=== PATIENT | female | born 1995 | race Caucasian/White ===

== ENCOUNTER 2022-11-30 18:27 | Emergency (ER) | payer SELFPAY ==
[2022-11-30 18:36] VITALS: BP 137/96; PULSE 61; RESP 18; TEMP 36.3; O2SAT 98; BMI 27.5
--- NOTE | 2022-11-30 18:46 | ED.GENADULT ---
HPI - General Adult General Date Seen: 11/30/22 Chief complaint: Laceration/Wound Stated complaint: Finger Lac Time Seen by Provider: 11/30/22 18:38 Source: patient Mode of arrival: ambulatory Limitations: no limitations History of Present Illness HPI narrative: Patient is a 27-year-old woman who was using a mandoline and sliced the side tip of her right thumb off. She has had some ongoing bleeding. She believes her tetanus is up-to-date. She has no other injuries or complaints. Related Data Home Medications Medication Instructions Recorded Confirmed No Known Home Medications 11/30/22 11/30/22 Allergies Allergy/AdvReac Type Severity Reaction Status Date / Time No Known Drug Allergies Allergy Verified 11/30/22 18:40 Exam Narrative: Exam Narrative: Vital signs reviewed In general, an alert, well-appearing woman. Extremities: Examination of the right hand shows a small avulsion off of the tip of the thumb. There is a little bit of persistent oozing type bleeding noted. Just the edge of the distal nail is involved. There is no involvement down to the bone. She did bring the flap of skin with her. Skin: Warm and dry, otherwise intact. Const: Vital Signs, click to edit/add: Vital Signs - 24 hr 11/30/22 18:36 Temperature 97.4 F L Pulse Rate [Pulse Oximeter] 61 Respiratory Rate 18 Blood Pressure [Le ft Upper Arm] 137/96 H Pulse Oximetry 98 Oxygen Delivery Me thod Room Air Documenting provider has reviewed patient's vital signs: yes Course Course Hospital Course: Discussed that that thin flap of skin simply is not viable and she understands that. We will go ahead and clean wound, apply some surgi- foam and a tube gauze dressing. I would recommend leaving this on for couple few days unless it is hurting more significantly, in which case she should remove the dressing to check for any signs of infection. Return if signs of infection develop, otherwise this will likely take a couple of weeks to heal. Discussed that there will be a permanent defect in the finger, sensation will likely be somewhat altered. Vital Signs Vital signs: Initial Vital Signs Temperature 97.4 F L 11/30/22 18:36 Temperature Source Temporal Artery Scan 11/30/22 18:36 Pulse Rate 61 11/30/22 18:36 Pulse Rhythm 11/30/22 18:36 Respiratory Rate 18 11/30/22 18:36 Blood Pressure 137/96 H 11/30/22 18:36 Blood Pressure Mean 109 11/30/22 18:36 Blood Pressure Position Sitting 11/30/22 18:36 Pulse Oximetry 98 11/30/22 18:36 Oxygen Delivery Method 11/30/22 18:36 Vital Signs Temperature 97.4 F L 11/30/22 18:36 Pulse Rate 61 11/30/22 18:36 Respiratory Rate 18 11/30/22 18:36 Blood Pressure 137/96 H 11/30/22 18:36 Pulse Oximetry 98 11/30/22 18:36 Oxygen Delivery Method 11/30/22 18:36 Temperature 97.4 F L 11/30/22 18:36 Pulse Rate 61 11/30/22 18:36 Respiratory Rate 18 11/30/22 18:36 Blood Pressure 137/96 H 11/30/22 18:36 Pulse Oximetry 98 11/30/22 18:36 Oxygen Delivery Method 11/30/22 18:36 Discharge Plan Discharge Clinical Impression: Avulsion of skin Patient Disposition: Home, Self-Care Condition: Improved Instructions: Skin Avulsion (ED) Additional Instructions: As long as you are not experiencing significantly worsening pain, leave the dressing we apply on today on for the next 2-3 days. At that point, you can remove it and probably will be okay with just a Band-Aid. Return for signs of infection such as worsening pain, redness, swelling. Prescriptions: No Action No Known Home Medications Stand Alone Forms: [facility] Info Instructions
[2022-11-30 19:19] VITALS: BP 137/96; PULSE 61; RESP 18; TEMP 36.3; O2SAT 98
[2022-11-30 19:20] VITALS: BP 137/96; PULSE 61; RESP 18; TEMP 36.3
== END 2022-11-30 19:20 | disposition home or self-care (01) ==
LOC: ED 18:54
PROVIDERS: Emergency Provider Emergency Medicine; PCP Family Medicine
DX: S61.011A Laceration without foreign body of right thumb without damage to nail, initial encounter (principal)
CPT/HCPCS: 99282; 99283

== ENCOUNTER 2023-12-23 08:50 | Emergency (ER) | payer OTHER, SELFPAY ==
[2023-12-23 08:54] VITALS: BP 123/79; PULSE 82; RESP 16; TEMP 36.6; O2SAT 100; BMI 25.7
--- NOTE | 2023-12-23 09:25 | US_ITS ---
Patient: YEHUDA GUTIERRES Facility:?[facility] Patient ID:?[id number] Site Patient ID:?[id number]. Site :?1995 Study:?US-OB Pelvis OB TV-12/23/2023 10:47:02 AM Ordering Physician:?LIYAH LOVING M.D. Final Report: Indication: Increased vaginal bleeding. . Technique: Sonography of the gravid uterus was performed. Examination was performed transvaginally. Grayscale imaging was provided as well as M-mode Doppler to quantify heart rate. Comparison: None Findings: There is a single living intrauterine . Based on a crown-rump length measurement of 1.1 centimeters, the gestational age is 7 weeks and 1 day. Estimated dated delivery is 08/09/2024. heart rate is 127 beats per minute. This is considered normal for this gestational age. A well-formed yolk sac and gestational sac is identified. The yolk sac measures 4.7 millimeters and the gestational sac averages 1.8 centimeters. The ovaries are normal in size. There is no ovarian or adnexal mass. The right ovary measures 2.8 x 2.0 x 2.5 centimeters and the left ovary measures 3.4 x 2.0 x 2.5 centimeters. Impression: 1. Single living intrauterine at 7 weeks and 1 day. heart rate is 127 beats per minute which is normal for this gestational age. 2. No subchorionic hemorrhage or other visible cause for bleeding 3. Normal ovaries and adnexa. Dictated by Kimani Salmeron MD @ 12/23/2023 10:57:53 AM Signed by:?Kimani Salmeron MD @12/23/2023 10:57:53 AM (Electronic Signature)
--- NOTE | 2023-12-23 09:26 | ED.PREGNANCY ---
HPI - General Date Seen: 12/23/23 Chief complaint: Vaginal Bleeding Stated complaint: bleeding/7 weeks preg. Time Seen by Provider: 12/23/23 08:51 Source: patient Mode of arrival: ambulatory Limitations: no limitations History of Present Illness HPI Narrative: Patient is a 28-year-old female presenting to the emergency department for vaginal bleeding. She is 7 weeks per ultrasound last week. She is a A2. She has been spotting for the past week and was spotting when the previous ultrasound was done. Noticed last night she had increased in bleeding. Her Ob was aware she has been spotting. Patient called nurse triage line today and was told to come to the emergency department to be evaluated. States it is a relatively small amount of blood and is going through less than a pad an hour. Denies abdominal pain, fevers, chills, chest pain, shortness of breath, weakness, numbness, headache, vision changes. 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 No other concerns noted Related Data Home Medications Medication Instructions Recorded Confirmed No Known Home Medications 11/30/22 11/30/22 Allergies Allergy/AdvReac Type Severity Reaction Status Date / Time No Known Drug Allergies Allergy Verified 11/30/22 18:40 Review of Systems Status of ROS: Reports: 10 or more systems reviewed and unremarkable except as noted in History and below [facility] Medical History No significant past medical history Surgical History No significant past surgical history Social History Smoking Status: Never smoker Do you use any of these nicotine containing products: None Second hand tobacco smoke exposure: No How often do you have a drink containing alcohol: never How often do you have six or more drinks on one occasion: Never AUDIT-C Alcohol total score: 0 Non-prescribed substance use: denies use Exam Narrative: Exam Narrative: Const: Well-nourished, Well-developed, in no distress Eyes: PERRL, no conjunctival injection, and symmetrical lids HENT: Atraumatic external nose and ears. Moist mucous membranes. Neck: Symmetric, trachea midline, No thyromegaly. CVS: RRR, No murmurs or gallops. Peripheral pulses 2+ and equal in all extremities RESP: Unlabored respiratory effort. Clear to auscultation bilaterally. GI: Nontender/Nondistended, No rebound or guarding. MSK:Extremities w/o deformity, Normal Active ROM Skin: Warm, Dry. No rashes or lesions. Neuro: Normal Muscle tone, No focal neurological deficits. Psych: Awake, Alert, & Oriented x3. Appropriate mood and affect. Const: Vital Signs, click to edit/add: Vital Signs - 24 hr 12/23/23 08:54 Temperature 97.9 F Pulse Rate [Pulse Oximeter] 82 Respiratory Rate 16 Blood Pressure [Ri ght Upper Arm] 123/79 Pulse Oximetry 100 Oxygen Delivery Me thod Room Air Course Vital Signs Vital signs: Initial Vital Signs Temperature 97.9 F 12/23/23 08:54 Temperature Source Temporal Artery Scan 12/23/23 08:54 Pulse Rate 82 12/23/23 08:54 Pulse Rhythm Regular 12/23/23 08:54 Respiratory Rate 16 12/23/23 08:54 Blood Pressure 123/79 12/23/23 08:54 Blood Pressure Mean 93 12/23/23 08:54 Blood Pressure Position Sitting 12/23/23 08:54 Pulse Oximetry 100 12/23/23 08:54 Oxygen Delivery Method Room Air 12/23/23 08:54 Vital Signs Temperature 97.9 F 12/23/23 08:54 Pulse Rate 82 12/23/23 08:54 Respiratory Rate 16 12/23/23 08:54 Blood Pressure 123/79 12/23/23 08:54 Pulse Oximetry 100 12/23/23 08:54 Oxygen Delivery Method Room Air 12/23/23 08:54 Temperature 97.9 F 12/23/23 08:54 Pulse Rate 82 12/23/23 08:54 Respiratory Rate 16 12/23/23 08:54 Blood Pressure 123/79 12/23/23 08:54 Pulse Oximetry 100 12/23/23 08:54 Oxygen Delivery Method Room Air 12/23/23 08:54 MDM - OB/Uterine Contractions MDM Narrative Medical decision making narrative: Patient is a 28-year-old female presenting for vaginal bleeding and is . She is about 7 weeks along. Had a normal ultrasound on the last week. Is unlikely to be ectopic since previous ultrasound shows is intrauterine. Patient looks well at this time. I spoke to the patient about a transvaginal ultrasound and she would like it to be done and was ordered. Will also order a CBC, BMP, quantitative beta hCG. Cbc and BMP showed no concerning findings. Quantitative hCG is at 7730. Ultrasound returned showing a heart rate 127 beats per minute does normal for gestational age. No signs of subchorionic hemorrhage or other visible causes for bleeding. Normal ovaries and adnexa. Patient is otherwise doing well we discharged home. She is agreeable to this plan. Lab Data Labs: Lab Results 12/23/23 Range/Units 09:34 WBC 7.50 (4.50-11.00) K/uL RBC 4.75 (4.00-5.20) m/uL Hgb 14.1 (12.0-16.0) gm/dL Hct 43.1 (33.0-51.0) % MCV 91 (80-100) fL MCH 30 (26-34) pg MCHC 33 (32-36) gm/dL RDW Coeff of Lotus 12.9 (11.5-15.5) % Plt Count 309 (140-440) K/uL Neut % (Auto) 70.9 (42.0-72.0) % Lymph % (Auto) 18.9 L (20-44) % [place] % (Auto) 8.1 (0.0-11.0) % Eos % (Auto) 1.6 (0.0-7.0) % Baso % (Auto) 0.4 (0.0-3.0) % Neut # (Auto) 5.31 (1.7-7.0) K/uL Lymph # (Auto) 1.40 (0.90-2.90) K/uL [place] # (Auto) 0.60 (0.00-0.90) K/UL Eos # (Auto) 0.12 (0.00-0.50) K/uL Baso # (Auto) 0.03 (0.00-0.30) K/uL Abs Immat Gran (auto) 0.01 (0.00-0.30) K/uL Imm/Tot Granulo (auto) 0.1 % Sodium 137 (135-149) mmol/L Potassium 3.9 (3.6-5.1) mmol/L Chloride 103 (96-114) mmol/L Carbon Dioxide 26 (20-32) mmol/L Anion Gap 8 (7-15) mEq/L BUN 10 (5-24) mg/dL Creatinine 0.6 (0.5-1.5) mg/dL Estimated Creat Clear 118.39 Estimated GFR 124 ml/min Glucose 131 H (60-115) mg/dL Calcium 10.3 (8.4-10.6) mg/dL HCG, Quant 7730.70 mIU/mL Imaging Data Transvaginal ultrasound: Attestation: I have reviewed the pertinent imaging results. Radiologist's impression: 1. Single living intrauterine at 7 weeks and 1 day. heart rate is 127 beats per minute which is normal for this gestational age. 2. No subchorionic hemorrhage or other visible cause for bleeding 3. Normal ovaries and adnexa. Dictated by Kimani Salmeron MD @ 12/23/2023 10:57:53 AM Discharge Plan Discharge Clinical Impression: Vaginal bleeding Patient Disposition: Home, Self-Care Condition: Stable Instructions: Non-Threatening First Trimester Vaginal Bleed (ED) Additional Instructions: If he started bleeding through more than 1 pad per hour return to the emergency department for re-evaluation. If it is less than that I recommend calling your OB [facility] to get their recommendations. Prescriptions: No Action No Known Home Medications Follow Up/Referrals: Wendi Kern DO [Primary Care Provider] - Stand Alone Forms: [employer] Info Instructions
[2023-12-23 09:42] LABS: Basophils Absolute Auto 0.03 K/uL (0.00-0.30); Basophils Percent Auto 0.4 % (0.0-3.0); Eosinophils Absolute Auto 0.12 K/uL (0.00-0.50); Eosinophils Percent Auto 1.6 % (0.0-7.0); Hematocrit 43.1 % (33.0-51.0); Hemoglobin* 14.1 gm/dL (12.0-16.0); Immature Granulocytes Abs Auto 0.01 K/uL (0.00-0.30); Immature Granulocytes Pct Auto 0.1 %; Lymphocytes Percent Auto 18.9 % (20-44); Mean Corpuscular HGB Conc 33 gm/dL (32-36); Mean Corpuscular Hemoglobin 30 pg (26-34); Mean Corpuscular Volume 91 fL (80-100); Monocytes Percent Auto 8.1 % (0.0-11.0); Neutrophils Absolute Auto 5.31 K/uL (1.7-7.0); Neutrophils Percent Auto 70.9 % (42.0-72.0); Platelet Count* 309 K/uL (140-440); RDW Coefficient of Variation % 12.9 % (11.5-15.5); Red Blood Count 4.75 m/uL (4.00-5.20)
[2023-12-23 09:45] LABS: Slide Review Reflex No
[2023-12-23 10:03] LABS: Chloride* 103 mmol/L (96-114); Sodium* 137 mmol/L (135-149)
[2023-12-23 10:04] LABS: Potassium* 3.9 mmol/L (3.6-5.1)
[2023-12-23 10:06] LABS: Anion Gap 8 mEq/L (7-15); Carbon Dioxide* 26 mmol/L (20-32); Creatinine* 0.6 mg/dL (0.5-1.5); Est. Creatinine Clearance* 118.39; Estimated Glomerular Filt Rate 124 ml/min
[2023-12-23 10:07] LABS: Blood Urea Nitrogen* 10 mg/dL (5-24); Calcium* 10.3 mg/dL (8.4-10.6); Glucose* 131 mg/dL (60-115)
== END 2023-12-23 11:08 | disposition home or self-care (01) ==
PROVIDERS: Emergency Provider Student in an Organized Health Care Education/Training Program; PCP Family Medicine
DX: O20.9 Hemorrhage in early pregnancy, unspecified (principal); Z3A.01 Less than 8 weeks gestation of pregnancy
CPT/HCPCS: 36415; 76817; 80048; 84702; 85025; 86850; 86900; 86901; 99282; 99283

== ENCOUNTER 2023-12-25 16:18 | Emergency (ER) | payer OTHER, SELFPAY ==
[2023-12-25 16:25] VITALS: BP 151/84; PULSE 91; RESP 18; TEMP 36.6; O2SAT 99; BMI 29.2
--- NOTE | 2023-12-25 17:03 | ED.PREGNANCY ---
HPI - General Time Seen by Provider: 17:03 Date Seen: 12/25/23 Chief complaint: Vaginal Bleeding Stated complaint: bleeding/cramps, 7 wks Time Seen by Provider: 12/25/23 17:03 Source: patient and RN notes reviewed Mode of arrival: ambulatory Limitations: no limitations History of Present Illness HPI Narrative: Sami is a very pleasant 28-year-old at 7 weeks 3 days with an EDC of 08/09 based on an ultrasound last week who comes to the emergency room for evaluation regarding increased bleeding. Patient was initially seen on December 22 with spotting and bleeding and at that time still had and embryonic heartbeat. Unfortunately the bleeding has increased and today is much more. Patient notes that she has some cramping but no significant pain. She denies fever chills lightheadedness or shortness of breath. She has had a history of 2 previous miscarriages. She has 2 living children. Her care was being done with a uniform designer. Otherwise she sees Dr. Mancia at the [facility]. Denies dysuria. No diarrhea. Related Data Home Medications Medication Instructions Recorded Confirmed No Known Home Medications 11/30/22 11/30/22 Allergies Allergy/AdvReac Type Severity Reaction Status Date / Time No Known Drug Allergies Allergy Verified 11/30/22 18:40 Review of Systems Status of ROS: Reports: 6 or more systems reviewed and unremarkable except as noted in History and below [facility] Medical History No significant past medical history Surgical History No significant past surgical history Social History Smoking Status: Never smoker Do you use any of these nicotine containing products: None Second hand tobacco smoke exposure: No How often do you have a drink containing alcohol: never How often do you have six or more drinks on one occasion: Never AUDIT-C Alcohol total score: 0 Non-prescribed substance use: denies use Exam Narrative: Exam Narrative: Patient is alert and oriented. Good color. Heart with regular rate and rhythm lungs are clear. Head is atraumatic normocephalic face is symmetrical speaking normally mentating normally. Lungs are clear bilaterally. Abdomen is soft nontender. Moving all extremities. Const: Vital Signs, click to edit/add: Vital Signs - 24 hr 12/25/23 16:25 Temperature 98 F Pulse Rate [Pulse Oximeter] 91 Respiratory Rate 18 Blood Pressure [Ri ght Upper Arm] 151/84 H Pulse Oximetry 99 Oxygen Delivery Me thod Room Air Documenting provider has reviewed patient's vital signs: yes Course Course ED Course: This most likely looks like a threatened . Will recheck hCG as well as CBC and basic panel. Ordered pelvic ultrasound as well. Vital Signs Vital signs: Initial Vital Signs Temperature 98 F 12/25/23 16:25 Temperature Source Temporal Artery Scan 12/25/23 16:25 Pulse Rate 91 12/25/23 16:25 Respiratory Rate 18 12/25/23 16:25 Blood Pressure 151/84 H 12/25/23 16:25 Blood Pressure Mean 106 H 12/25/23 16:25 Pulse Oximetry 99 12/25/23 16:25 Oxygen Delivery Method Room Air 12/25/23 16:25 Vital Signs Temperature 98 F 12/25/23 16:25 Pulse Rate 91 12/25/23 16:25 Respiratory Rate 18 12/25/23 16:25 Blood Pressure 151/84 H 12/25/23 16:25 Pulse Oximetry 99 12/25/23 16:25 Oxygen Delivery Method Room Air 12/25/23 16:25 Temperature 98 F 12/25/23 16:25 Pulse Rate 91 12/25/23 16:25 Respiratory Rate 18 12/25/23 16:25 Blood Pressure 151/84 H 12/25/23 16:25 Pulse Oximetry 99 12/25/23 16:25 Oxygen Delivery Method Room Air 12/25/23 16:25 MDM - OB/Uterine Contractions MDM Narrative Medical decision making narrative: 1. Incomplete -products of conception appear to be in the endocervical canal. There is no cardiac activity and this does appear to could be compatible with demise. Endometrial thickness is 2.4 cm. Patient is aware of this finding. She has reassuring hemoglobin of 14.3. Her hCG has dropped consistent with incomplete . Will discharge her home at this time. She is to watch for fever, worsening pain, vomiting, lightheadedness and return if these occur. She will follow up with her primary MD Dr. Mancia she will need to have her hCG levels monitored down to 0. Of course worsening symptoms she needs to return to the emergency room. She voices understanding. 2. Disposition-return as needed. Home at this time. Medical Records Attestation: I reviewed the patient's medical records. Lab Data Attestation: I reviewed the patient's lab results. Labs: Lab Results 12/25/23 Range/Units 17:15 WBC 7.00 (4.50-11.00) K/uL RBC 4.81 (4.00-5.20) m/uL Hgb 14.3 (12.0-16.0) gm/dL Hct 44.2 (33.0-51.0) % MCV 92 (80-100) fL MCH 30 (26-34) pg MCHC 32 (32-36) gm/dL RDW Coeff of Lotus 13.0 (11.5-15.5) % Plt Count 275 (140-440) K/uL Neut % (Auto) 60.4 (42.0-72.0) % Lymph % (Auto) 25.1 (20-44) % [place] % (Auto) 13.0 H (0.0-11.0) % Eos % (Auto) 1.0 (0.0-7.0) % Baso % (Auto) 0.4 (0.0-3.0) % Neut # (Auto) 4.22 (1.7-7.0) K/uL Lymph # (Auto) 1.76 (0.90-2.90) K/uL [place] # (Auto) 0.90 (0.00-0.90) K/UL Eos # (Auto) 0.07 (0.00-0.50) K/uL Baso # (Auto) 0.03 (0.00-0.30) K/uL Abs Immat Gran (auto) 0.01 (0.00-0.30) K/uL Imm/Tot Granulo (auto) 0.1 % Sodium 138 (135-149) mmol/L Potassium 3.6 (3.6-5.1) mmol/L Chloride 104 (96-114) mmol/L Carbon Dioxide 25 (20-32) mmol/L Anion Gap 9 (7-15) mEq/L BUN 12 (5-24) mg/dL Creatinine 0.6 (0.5-1.5) mg/dL Estimated Creat Clear 118.39 Estimated GFR 124 ml/min Glucose 102 (60-115) mg/dL Calcium 9.6 (8.4-10.6) mg/dL HCG, Quant 4341.10 mIU/mL Imaging Data Pelvic ultrasound: Attestation: I have reviewed the pertinent imaging results. Radiologist's impression: demise with in progress. Gestational sac and embryo are within the endocervical canal. There is no evidence of cardiac activity findings are compatible with demise an in progress. Both or worries are normal. Retroverted uterus. Endometrial stripe thickness at 2.4 cm. Discharge Plan Discharge Clinical Impression: Incomplete Patient Disposition: Home, Self-Care Condition: Improved Additional Instructions: Continue to monitor. Your bleeding likely continue. If you note that your feeling lightheaded, experience fever chills or increasing abdominal pain please return to the emergency room for further evaluation. Hemoglobin is 14.3 at this time. Your hCG has dropped from 7730 to 4341. Follow-up with your primary provider for recheck. We want to ensure that your hemoglobin does not drop too low and your hCG does drop to 0. Prescriptions: No Action No Known Home Medications Follow Up/Referrals: Wendi Kern DO [Primary Care Provider] - Stand Alone Forms: [employer] Info Instructions
--- NOTE | 2023-12-25 17:07 | US_ITS ---
Patient: YEHUDA GUTIERRES Facility:?[facility] Patient ID:?[id number] Site Patient ID:?[id number]. Site :?04/13/1998 Study:?US-OB Pelvis TV OB<14wks-12/25/2023 6:49:26 PM Ordering Physician:? Final Report: INDICATION: Increased vaginal bleeding in early . Eleven week 3 day gestational age. TECHNIQUE: Transvaginal 1st trimester OB ultrasound. Grayscale and Doppler images. Comparison: 12/23/2023 FINDINGS: Gestational sac and embryo are now within the endocervical canal. No cardiac activity. Findings are compatible with demise and in progress. Both ovaries appear normal. Retroverted uterus. Endometrial stripe thickness 2.4 cm. IMPRESSION: demise with in progress. Dictated by Anatoliy Wylie MD @ 12/25/2023 6:56:02 PM Signed by:?Anatoliy Wylie MD @12/25/2023 6:56:02 PM (Electronic Signature)
[2023-12-25 17:23] LABS: Basophils Absolute Auto 0.03 K/uL (0.00-0.30); Basophils Percent Auto 0.4 % (0.0-3.0); Eosinophils Absolute Auto 0.07 K/uL (0.00-0.50); Hematocrit 44.2 % (33.0-51.0); Hemoglobin* 14.3 gm/dL (12.0-16.0); Immature Granulocytes Abs Auto 0.01 K/uL (0.00-0.30); Immature Granulocytes Pct Auto 0.1 %; Lymphocytes Absolute Auto 1.76 K/uL (0.90-2.90); Lymphocytes Percent Auto 25.1 % (20-44); Mean Corpuscular HGB Conc 32 gm/dL (32-36); Mean Corpuscular Hemoglobin 30 pg (26-34); Mean Corpuscular Volume 92 fL (80-100); Neutrophils Absolute Auto 4.22 K/uL (1.7-7.0); Neutrophils Percent Auto 60.4 % (42.0-72.0); Platelet Count* 275 K/uL (140-440); Red Blood Count 4.81 m/uL (4.00-5.20)
[2023-12-25 17:24] LABS: Slide Review Reflex No
[2023-12-25 17:35] LABS: Chloride* 104 mmol/L (96-114); Potassium* 3.6 mmol/L (3.6-5.1); Sodium* 138 mmol/L (135-149)
[2023-12-25 17:37] LABS: Creatinine* 0.6 mg/dL (0.5-1.5); Est. Creatinine Clearance* 118.39; Estimated Glomerular Filt Rate 124 ml/min
[2023-12-25 17:38] LABS: Anion Gap 9 mEq/L (7-15); Blood Urea Nitrogen* 12 mg/dL (5-24); Calcium* 9.6 mg/dL (8.4-10.6); Carbon Dioxide* 25 mmol/L (20-32); Glucose* 102 mg/dL (60-115)
== END 2023-12-25 19:29 | disposition home or self-care (01) ==
PROVIDERS: Emergency Provider Family Medicine; PCP Family Medicine
DX: O03.4 Incomplete spontaneous abortion without complication (principal)
CPT/HCPCS: 36415; 76817; 80048; 84702; 85025; 99284

== ENCOUNTER 2024-02-06 11:31 | Outpatient (CLI) | payer OTHER, SELFPAY | END 2024-02-06 11:32 | disposition home or self-care (01) | PROVIDERS: PCP Family Medicine; Visit Provider Obstetrics & Gynecology | DX: N96 Recurrent pregnancy loss (principal) | CPT/HCPCS: 82232; 83001; 85610; 85613; 85730; 86147; 88262 ==

== ENCOUNTER 2024-03-08 09:02 | Day surgery (SDC) | payer OTHER, SELFPAY ==
--- OUTSIDE RECORDS SUMMARY | 2024-03-08 09:06 | XMS_ITS | Clinical Summary ---
Author Organization [facility] [employer] [facility] Address [place], [place] [address] Care Team Providers Care Continuous Improvement Engineer Name Role Phone Wendi Kern DO Primary Care Provider [phone] Allergies No known active allergies Medications Medication Sig Dispensed Refills Start Date End Date Status vitamin-folic acid 1 mg ( RX) tablet/capsule Take 1 tablet by mouth once daily. 0 09/27/2018 Active cholecalciferol (VITAMIN D) 1,000 unit capsule Take 1 capsule by mouth once daily. 0 09/27/2018 Active Active Problems Problem Noted Date Diagnosed Date Prediabetes 02/29/2024 Pap smear for cervical cancer screening 01/18/20 23 Overview: 01/2023 NIL/HPV negative Plan: Pap/HPV due in 5 years care in second trimester 09/27/2018 Overview: Marcial is Gender is a surprise! Plans to breastfeed. Circ desired if boy GBS negative Component Latest Ref Rng & Units 01/04/2019 Culture No Group B Streptococcus isolated. Estimated Date of Delivery: 02/01/19 Patient's last menstrual period was 04/27/2018 (approximate). Last Tdap- 11/08/2018 Last Flu vaccine- 09/22/2018 Glucose (GTT) result- Component Latest Ref Rng & Units 11/08/2018 HEMOGLOBIN 12.0 - 16.0 g/dL 10.7 (L) MCV 80 - 100 fL 93 GLUCOSE,GESTATIONAL 65 - 139 mg/dL 93 20 week US: Impression: 1. Breech presentation. 2. No anatomical abnormalities identified. 3. Ultrasound age on today`s exam 20 weeks 3 days with CATHY of 02/06/2019 within CATHY by LMP of 02/01/2019. No Known Allergies Obstetric History T0 L0 SAB0 TAB0 Ectopic0 Multiple0 Live Births0 # Outcome Date GA Lbr Jaison/2nd Weight Sex Delivery Anes PTL Lv 1 Current Create lab flowsheet for OB labs- Component Latest Ref Rng & Units 09/22/2018 09/22/2018 09/22/2018 9:28 AM 9:28 AM 9:28 AM ANTIBODY SCREEN Negative Negative SPECIMEN EXPIRATION DATE/TIME 09/25/18 23:59 HEMOGLOBIN 12.0 - 16.0 g/dL 11.8 (L) MCV 80 - 100 fL 94 RUBELLA IGG ANTIBODY Positive 5.17 HEMOGLOBIN A1C SCREENING <6.4 % 5.4 ABORH A Rh Positive HBSAG Nonreactive Nonreactive HEPATITIS C ANTIBODY Non-Reactive Non-Reactive HIV-1/HIV-2 ANTIBODY Non-Reactive Non-Reactive TREPONEMA PALLIDUM Negative Negative Past Medical History: Diagnosis Date ? ? Acne ? ? Environmental allergies skin test + trees, grasses, dust, cat, dog Past Surgical History: Procedure Laterality Date ? ? NO PREVIOUS SURGERY No data on file. Problems (from 09/22/18 to present) No problems associated with this episode. Brie Vance, RNC.....09/27/2018 3:31 PM Menorrhagia with irregular cycle 05/16/2013 Acne 08/06/2011 Environmental allergies Encounters Date Type Department Care Team Description 02/29/2024 8:20 AM CDT Preop Visit [address] [place] [address] Wendi Kern DO Preoperative Exam (03/08/[address] [facility] [address] Reyes, D & C) 02/29/2024 Travel 02/06/2024 Lab Requisition [facility] [phone] Mary Reyes MD 01/31/2024 10:30 AM CDT Ancillary Procedure [facility] [address] [facility] [place] [address] 01/30/2024 Travel 01/12/2024 9:35 AM CDT Office Visit [address] [place] [address] Wendi Kern DO Follow Up (miscarriage ) 01/12/2024 Travel 01/09/2024 Travel 12/25/2023 Orders Only [facility] Scanner 1 scan: (1-Ord) [facility], SUMMARY DISCHARGE LAB REPORT, 12/25/2023 12/25/2023 Orders Only [facility] Scanner 1 scan: (1-Ord) [facility], OB TRANSVAGINAL, 12/25/2023 12/25/2023 Telephone [facility] [address] [facility] [place] [address] Wendi Kern, Questions 12/23/2023 Orders Only [facility] Scanner 1 scan: (1-Ord) [facility], OB PELVIS OB TV, 12/23/2023 12/23/2023 Orders Only [facility] HIM SERVICES Scanner 1 scan: (1-Ord) [facility], SUMMARY DISCHARGE LAB REPORT, 12/23/2023 12/23/2023 Nurse Triage [facility] [address] [facility] [place] [address] Wendi Kern, Vaginal Bleeding from Last 3 Months Immunizations Name Administration Dates Next Due DTaP 01/21/1998, 5,1993,08/12,1993 DTaP-HIB (TriHIBIT) 09/29/1994, 4,1993,06/03 Hepatitis A (Peds) 03/19/2013,08/06/2011 Hepatitis B (Peds) 03/04/1995, 4,1993,10/06 Hib Conjugate, Unspecified 09/29/1994,,1993,06/03 Human Papilloma Virus Vaccine 12/09/2010, 007,05/15/2007 Human Papilloma Virus Vaccin e, Unspecified 12/09/2010,07/17/2007,05/15/2007 Influenza Virus, Unspecified 07/20/2013 Influenza, IIV3 (Age 6-35 mos) 08/06/2011 Influenza, IIV3 (Age >=3 years) 08/06/2011 Influenza, IIV4 09/22/2018 MMR 05/13/2005,07/28/1994 Meningococcal Vaccine (Menactra) 08/06/2011,04/20 Oral Polio Vaccine 01/21/1998, 5,1993,06/03 Td (Age >=7 Years) 05/13/2005 Tdap 11/08/2018,05/15/2007 Tuberculin (PPD) 03/19/2013 Varicella Vaccine 05/15/2007,06/29/1999 Family History Medical History Relation Name Comments Heart Disease Father stents, angina Cancer-breast Maternal Grandmother Camila Other Maternal Grandmother Camila detache d retina Diabetes Paternal Grandfather Paternal grandfather early CAD in 40's Diabetes Paternal Grandmother Zuly Stroke Paternal Grandmother Zuly Other Sister acromegaly Relation Name Status Comments Father Alive Maternal Grandfather Alive Maternal Grandmother Camila Alive Mother Alive Paternal Grandfather Paternal grandfather Paternal Grandmother Zuly Alive Sister Social History Tobacco Use Types Packs/Day Years Used Date Smoking Tobacco: Never Smokeless Tobacco: Never Tobacco Cessation:Counseling Given: Yes Alcohol Use Standard Drinks/Week Comments No 0 (1 standard drink = 0.6 oz pur e alcohol) PHQ-2 Answer Date Recorded PHQ-2 TOTAL SCORE 1 01/17/2023 Social Connections Answer Date Recorded Frequency of Communication with Friends and Fami ly Not on file 01/18/2024 Financial Resource Strain Answer Date R ecorded Difficulty of Paying Living Expenses 3 01/03/2023 Difficulty of Paying Living Expenses Not on file 01/03/2023 Food Insecurity Answer Date Recorded Worried About Running Out of Food in the Last Ye ar 1 01/03/2023 Transportation Needs Answer Date Record ed Lack of Transportation (Medical) 1 01/03/2023 Housing Stability Answer Date Recorded Unable to Pay for Housing in the Last Year 1 01/03/2023 Sex and Gender Information Value Date Recorded Sex Assigned at Not on file Gender Identity Not on file Sexual Orientation Not on file Obstetrics History Para Term AB IAB SAB Ectopic Multiple Livin g Live Births 3 2 2 0 1 0 1 0 0 2 2 Date Outcome GA Total Labor Labor/2nd/3rd Weight Sex Type Anes PTL Janki A1 A5 Name Clin SAB SPONTAN EOUS Demise 02/04 Term 40w 3d Vag Living 02/07 Term Vag Living Last Filed Vital Signs Vital Sign Reading Time Taken Comments Blood Pressure 122/76 02/29/2024 8:55 AM CDT Pulse 66 02/29/2024 8:30 AM CDT Temperature 37.2 ??C (98.9 ??F) 02/29/2024 8:30 AM CD T Respiratory Rate - - Oxygen Saturation 98% 02/29/2024 8:30 AM CDT Inhaled Oxygen Concentration - - Weight 91.6 kg (202 lb) 02/29/2024 8:30 AM CDT Height 164.5 cm (5' 4.75) 02/29/2024 8:30 AM CD T Body Mass Index 33.87 02/29/2024 8:30 AM CDT Plan of Treatment Health Maintenance Due Date Last Done Comments COVID-19 vaccine series ( season) 2023 Depression screening for age 12+ 01/18/2024 01/17/2023, 09/22/2018 Influenza for age 9-49 05/20/2024 9, 07/20/2013, 08/06/2011 BMI (ht and wt on same day) for age 18+ 02/28/2025 02/29/2024, 01/17/2023, 08/21/2021, Additional history exists Pap test for age 21-65 01/18/2028 , 01/17/2023, 09/27/2018, Additional history exists Tetanus booster 11/08/2028 11/08/2018, 04/20, 05/13/2005 HIV for age 15-65 Completed 09/22/2018 Hepatitis C screening for age 18-79 Completed 09/22/2018 Tdap Completed 11/08/2018, 05/15/2007 Pneumococcal series for age 6-64 Aged Out No longer eligible based on patient's age to complete this topic Procedures Procedure Name Priority Date/Time Associated Diagnosis Comments CHROM TECH 2 Routine 02/06/2024 12:00 PM CDT CHROM TECH 1 Routine 02/06/2024 12:00 PM CDT WC Routine 02/06/2024 12:00 PM CDT WB Routine 02/06/2024 12:00 PM CDT CB WETLAB Routine 02/06/2024 12:00 PM CDT CB CHROM Routine 02/06/2024 12:00 PM CDT CYTOGENETIC CONGENITAL BLOOD STUDIES Routine 02/06/2024 12:00 PM CDT US PELVIS COMPLETE TA AND TV Routine 01/31/2024 10:58 AM CDT History of recurrent miscarriages TSH WITH REFLEX Routine 01/12/2024 10:44 AM CDT History of recurrent miscarriages HCG BETA QUANT, Routine 01/12/2024 10:44 AM CDT Miscarriage SCAN-LABORATORY REPORT 12/25/2023 12:00 AM CDT SCAN-ULTRASOUND REPORT 12/25/2023 12:00 AM CDT SCAN-LABORATORY REPORT 12/23/2023 12:00 AM CDT SCAN-ULTRASOUND REPORT 12/23/2023 12:00 AM CDT HPV THIN PREP Routine 01/17/2023 10:53 AM CDT Cervical cancer screening ANTI HIV 1/2 Routine 09/22/2018 9:28 AM PROFESSOR/NURSE ANESTHETIST Encounter for supervision of normal first in second trimester ANTI HCV Routine 09/22/2018 9:28 AM PROFESSOR/NURSE ANESTHETIST Encounter for supervision of normal first in second trimester from Last 3 Months or Most Recently Relevant to Health Maintenance Results * CB WETLAB (02/06/2024 12:00 PM CDT) Blood (Peripheral Blood) Client Collect / Unknown 02/06/2024 12:00 PM CDT 02/06/2024 9:08 PM CDT Mary Rosalina Reyes MD LABORATORY [facility] [address] [place] [id number], [place] * WB (02/06/2024 12:00 PM CDT) Blood (Peripheral Blood) Client Collect / Unknown 02/06/2024 12:00 PM CDT 02/06/2024 9:08 PM CDT Mary Reyes MD LABORATORY Performing Organization Address City/[facility]/ZIP Co de Phone Number [email or web address] [address] [place] [phone], [place] * CHROM TECH 2 (02/06/2024 12:00 PM CDT) Blood (Peripheral Blood) Client Collect / Unknown 02/06/2024 12:00 PM CDT 02/06/2024 9:08 PM CDT Mary Reyes MD LABORATORY Performing Organization Address [facility] Co de Phone Number [email or web address] [address] [place] [phone], [place] * CHROM TECH 1 (02/06/2024 12:00 PM CDT) Blood (Peripheral Blood) Client Collect / Unknown 02/06/2024 12:00 PM CDT 02/06/2024 9:08 PM CDT Mary Reyes MD LABORATORY Performing Organization Address City/[facility] Co de Phone Number [email or web address] [address] [place] [id number], [place] * CB CHROM (02/06/2024 12:00 PM CDT) Blood (Peripheral Blood) Client Collect / Unknown 02/06/2024 12:00 PM CDT 02/06/2024 9:08 PM CDT Mary Reyes MD LABORATORY Performing Organization Address City/[facility]/ZIP Co de Phone Number [facility] [address] [place] [id number], [place] * WC (02/06/2024 12:00 PM CDT) Blood (Peripheral Blood) Client Collect / Unknown 02/06/2024 12:00 PM CDT 02/06/2024 9:08 PM CDT Mary Rosalina Reyes MD LABORATORY [facility] [address] [place] [address], * CYTOGENETIC CONGENITAL BLOOD STUDIES (02/06/2024 12:00 PM CDT) RFR Recurrent loss 02/21/2024 5:52 PM CDT [facility] TEST & RESULT SUMMARY Chromosome Analysis: Normal female karyotype. 02/21/2024 5:52 PM CDT [facility] _ 02/21/2024 5:52 PM CDT [facility] ISCN 46,XX 02/21/2024 5:52 PM CDT [facility] INTERPRETATION Chromosome analysis revealed a normal female karyotype with no numeric or structural chromosome abnormalities detected. 02/21/2024 5:52 PM CDT [facility] LAB TEST DETAILS Fully Analyzed Metaphases: ??6 Partially Analyzed Metaphases: ??14 Full Karyotypes: ??2 Band Length Range: ??575-600 02/21/2024 5:52 PM CDT [facility] SOURCE Peripheral Blood (10ml NaHep tube) - received 8ml 02/21/2024 5:52 PM CDT [facility] METHODS Cultures used in chromosome analysis may include synchronized and/or unsynchronized cultures. ?? Chromosome analysis is performed selecting the highest quality termite control service representative G-banded metaphases available. A minimum of six metaphases were fully analyzed. 02/21/2024 5:52 PM CDT [facility] DISCLAIMER This test was developed and its performance characteristics determined by the [facility]. It has not been cleared or approved by the U.S. Food and Drug Administration. The FDA does not require these tests to go through premarket FDA review. These tests are used for clinical purposes. They should not be regarded as investigational or for research. This laboratory is certified under the Clinical Laboratory Improvement Amendments (CLIA) as qualified to perform high complexity clinical laboratory testing. 02/21/2024 5:52 PM CDT [facility] Blood (Peripheral Blood) Client Collect / Unknown 02/06/2024 12:00 PM CDT 02/06/2024 9:08 PM CDT Mary Rosalina Reyes MD LABORATORY [facility] [address] [place] [id number], [place] * US PELVIS COMPLETE TA AND TV (01/31/2024 10:58 AM CDT) Anatomical Region Laterality Modality Pelvis Ultrasound 02/01/2024 3:38 PM CDT Impressions 02/01/2024 3:38 PM CDT Calcification associated with the endometrial stripe measuring 5 millimeters. Endometrium is otherwise unremarkable and measures 7 millimeters. No uterine fibroid. Dictated by Cricket Peraza MD @ 02/01/2024 3:38:10 PM (Electronically Signed) Narrative 02/01/2024 3:38 PM CDT For Patients: ??As a result of the Century Cures Act, medical imaging exams and procedure reports are released immediately into your electronic medical record. ??You may view this report before your referring provider. ??If you have questions, please contact your health care provider. INDICATION: History of recurrent miscarriages COMPARISON: none TECHNIQUE: 2D robison scale and color Doppler images were acquired of the pelvis using a transabdominal and transvaginal approach. FINDINGS: Sonographic images demonstrate a normal size and smooth outer contour of the uterus. Uterus measures 7.7 cm in length by 5.1 cm in AP diameter by 4.9 cm in transverse dimension. ??The myometrium has a normal uniform echotexture. The endometrial lining measures 7 mm in composite thickness. Echogenic focus associated with the endometrial stripe measuring 4 x 5 x 4 millimeters. The right ovary measures 3.8 x 2.7 x 2.9 cm in size and the left ovary measures 3.1 x 2.3 x 2.8 cm. The ovaries demonstrate normal arterial and venous blood flow on color Doppler analysis. Mild physiologic pelvic free fluid. Procedure Note Cricket Peraza MD - 02/01/2024 For Patients: As a result of the Cures Act, medical imagingexams and procedure reports are released immediately into your electronicmedical record. You may view this report before your referring provider.If you have questions, please contact your health care provider. INDICATION: History of recurrent miscarriages COMPARISON: none TECHNIQUE: 2D robison scale and color Doppler images were acquired of the pelvis using atransabdominal and transvaginal approach. FINDINGS: Sonographic images demonstrate a normal size and smooth outer contour ofthe uterus. Uterus measures 7.7 cm in length by 5.1 cm in AP diameter by4.9 cm in transverse dimension. The myometrium has a normal uniformechotexture. The endometrial lining measures 7 mm in composite thickness.Echogenic focus associated with the endometrial stripe measuring 4 x 5 x 4millimeters. The right ovary measures 3.8 x 2.7 x 2.9 cm in size and the left ovarymeasures 3.1 x 2.3 x 2.8 cm. The ovaries demonstrate normal arterial andvenous blood flow on color Doppler analysis. Mild physiologic pelvic freefluid. IMPRESSION: Calcification associated with the endometrial stripe measuring 5millimeters. Endometrium is otherwise unremarkable and measures 7millimeters. No uterine fibroid. Dictated by Cricket Peraza MD @ 02/01/2024 3:38:10 PM (Electronically Signed) Wendi Kern DO US * TSH WITH REFLEX (01/12/2024 10:44 AM CDT) TSH 1.11 0.27 - 4.20 uIU/mL 01/12/2024 5:32 PM CDT [facility]AT[facility] Blood BLOOD SPECIMEN / Unknown Venipuncture / Unknown 01/12/2024 10:44 AM CDT 01/12/2024 10:44 AM CDT Narrative [facility] - 01/12/2024 5:32 PM CDT In Adults, TSH values between 5.00 and 10.00 uIU/ml do not necessarily indicate the presence of Hypothyroidism. Correlation with clinical findings such as presence of goiter and/or Thyroperoxidase (TPO) Antibody may be helpful. For more information please refer to LORRAINE 2004; 291: 228-238. Wendi Kern DO CHEMISTRY Performing Organization Address City/[facility]/ZIP Co de Phone Number [facility] [address] [place] [address], * HCG BETA QUANT, (01/12/2024 10:44 AM CDT) HCG BETA QUANT,PREGNANC Y 4 mIU/mL 01/12/2024 5:29 PM CDT [facility] Blood BLOOD SPECIMEN / Unknown Venipuncture / Unknown 01/12/2024 10:44 AM CDT 01/12/2024 10:44 AM CDT Narrative [facility] - 01/12/2024 5:29 PM CDT Expected Value for Healthy Non- premenopausal women <5.3mIU/mL FOR GESTATIONAL ASSESSMENT-See Range Table Below Weeks of gestation hCG mIU/mL 3 weeks gestation (5.8 - 71.2) 4 weeks gestation (9.5 - 750) 5 weeks gestation (217 - 7138) 6 weeks gestation (158 - 31,795) 7 weeks gestation (3,697 - 163,563) 8 weeks gestation (32,065 - 149,571) 9 weeks gestation (63,803 - 151,410) 10 weeks gestation (46,509 - 186,977) 12 weeks gestation (27,832 - 210,612) 14 weeks gestation (13,950 - 62,530) 15 weeks gestation (12,039 - 70,971) 16 weeks gestation (9,040 - 56,451) 17 weeks gestation (8,175 - 55,868) 18 weeks gestation (8,099 - 58,176) Biotin supplements may cause clinically significant interference for this test assay. ??If interference is suspected, it is strongly recommended that biotin is discontinued for at least one week prior to retesting. Wendi Kern DO CHEMISTRY Performing Organization Address City/[facility]/ZIP Co de Phone Number [facility] [address] [place] [address], * SCAN-LABORATORY REPORT (12/25/2023 12:00 AM CDT) Only the most recent of2 resultswithin the time period is included. Scanner OTHER * SCAN-ULTRASOUND REPORT (12/25/2023 12:00 AM CDT) Only the most recent of2 resultswithin the time period is included. Anatomical Region Laterality Modality Other Scanner OTHER * HPV HIGH RISK (01/17/2023 10:53 AM CDT) TYPE 16 Negative Negative 01/20/2023 10:39 AM CDT [facility] TYPE 18 Negative Negative 01/20/2023 10:39 AM CDT [facility] OTHER HIGH RISK TYPES Negative Negative 01/20/2023 10:39 AM CDT [facility] Other (Cervical) Non-Blood / Unknown 01/17/2023 10:53 AM CDT 01/18/2023 2:01 PM CDT Narrative [facility] - 01/20/2023 10:39 AM CDT HPV types 16, 18, 31, 33, 35, 39, 45, 51, 52, 56, 58, 59, 66 and 68 DNA were undetectable or below the pre-set threshold. Methodology: Leah Macario 4800 HPV Test Wendi Kern DO MICROBIOLOGY [facility] [address] [place] [address], [place] * ANTI HCV (09/22/2018 9:28 AM PROFESSOR/NURSE ANESTHETIST) HEPATITIS C ANTIBODY Non-React sanaz Non-React sanaz 09/22/2018 6:23 PM PROFESSOR/NURSE ANESTHETIST [facility] Comment:Antibodies to HCV no t detected; does not exclude the possibility of exposure to HCV. Blood BLOOD SPECIMEN / Unknown Venipuncture / Unknown 09/22/2018 9:28 AM PROFESSOR/NURSE ANESTHETIST 09/22/2018 9:28 AM PROFESSOR/NURSE ANESTHETIST Nadine ROLLINS SEND OUTS [facility] [address] [place] [address], * ANTI HIV 1/2 (09/22/2018 9:28 AM PROFESSOR/NURSE ANESTHETIST) HIV-1/HIV-2 ANTIBODY Non-Reacti ve Non-Reacti ve 09/22/2018 7:18 PM PROFESSOR/NURSE ANESTHETIST [facility] Comment:HIV-1 p24 and HIV-1/ HIV-2 Ab not detected. Blood BLOOD SPECIMEN / Unknown Venipuncture / Unknown 09/22/2018 9:28 AM PROFESSOR/NURSE ANESTHETIST 09/22/2018 9:28 AM PROFESSOR/NURSE ANESTHETIST Nadine ROLLINS SEND OUTS Performing Organization Address City/[facility]/ZIP Co de Phone Number [facility] [address] [place] [address], from Last 3 Months or Most Recently Relevant to Health Maintenance Care Teams Continuous Improvement Engineer Relationship Specialty Start Date End Date Wendi Kern DO [address] [place] [address] PCP - General Family Practice 12/20/18
[2024-03-08 09:18] VITALS: BMI 34.4
[2024-03-08 09:34] LABS: Ur HCG Qualitative* Negative (Negative)
[2024-03-08 09:38] VITALS: BP 132/83; PULSE 70; RESP 16; TEMP 36.6; O2SAT 100
[2024-03-08] MEDS: SODIUM CHLORIDE 0.9 % (FLUSH) 10 ML SYRINGE IVF (09:40)
[2024-03-08] MEDS: LACTATED RINGERS 1000 ML 1,000 ML 100 ML IV (09:40)
[2024-03-08 09:53] LABS: Hemoglobin* 13.4 gm/dL (12.0-16.0)
--- NOTE | 2024-03-08 09:57 | SUR.PREOP ---
attempted to remove wedding ring pre-op without success. Refusal form signed and pt educated on risks.
--- NOTE | 2024-03-08 10:17 | W.PM.H&PU ---
History & Physical Update History & Physical Update H&P Updates: Has not had a menstrual cycle since prior to her last Last intercourse: approximately two weeks ago. UPT negative on 03/08/24
[2024-03-08 13:00] VITALS: BP 102/52; PULSE 97; RESP 16; TEMP 36.1; O2SAT 93
--- NOTE | 2024-03-08 13:06 | W.ANESCHARGE ---
Anesthesia Charges Start Date/Time Anesthesia Start Date: 03/08/24 Anesthesia Start Time: 12:08 Stop Date/Time Anesthesia Stop Date: 03/08/24 Anesthesia Stop Time: 13:05
--- NOTE | 2024-03-08 13:13 | W.PM.GYNPROC ---
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 Postoperative diagnosis: Same Procedure: Hysteroscopy, Dilation and Curettage using the Truclear incisor Anesthesia: Conscious sedation, paracervical block. Surgeon: Mary Reyes MD Pharmacy Operations Coordinator: None Estimated blood loss: <5 mL UOP: 450 cc IVF: 400 cc Specimen: Endometrial curettings to pathology. Findings: Exam under anesthesia: Cervix: normal appearing without lesions. Uterus: Anteverted position, less than 5 week sized, mobile, with no masses or nodularity palpable. Uterus sounded to 7 cm. No adnexal masses or nodularity palpable. On hysteroscopy: Right uterine side wall with scattered yellow calcifications. Otherwise, healthy appearing endometrial tissue with normal bilateral tubal ostia. Procedure: Sami was taken to the operating operating room more conscious sedation was found to be adequate. The patient was placed on in the dorsal lithotomy position and an exam under anesthesia was performed with findings stated above. She was then prepped and draped in a normal sterile manner. A bivalve speculum was placed in the vagina. The cervix appears nulliparous. Otherwise no abnormalities. The paracervical block was placed using 1% lidocaine with epinephrine, 5 mL was injected at the 4 and 8 o'clock positions on the cervix. The anterior lip of the cervix was grasped with a long Allis clamp. The cervix dilated to Hegar 6. The uterus sounded to 7 cm. The Truclear hysteroscope was advanced into the uterus. A diagnostic hysteroscopy was performed with normal saline as the insufflation medium. Findings are stated above. The Truclear incisor was then advanced through the camera. Global curettage was performed with the incisor, focusing on the area of calcifications. Endometrial tissues looked healthy underneath. The incisor was then removed. The endometrial cavity appeared normal. Saline deficit at the end of the procedure 275 mL. Total saline used 2680 mL. Nothing needed for hemostasis. The hysteroscope, Allis clamp and speculum were removed from the vaginal canal. The patient tolerated the procedure well. Sponge, lap and instrument counts were correct x2 at the end of the procedure. The patient was taken to the recovery area in stable condition.
[2024-03-08 13:15] VITALS: BP 105/60; PULSE 73; RESP 16; O2SAT 98
[2024-03-08 13:30] VITALS: BP 107/70; PULSE 82; RESP 16; O2SAT 98
[2024-03-08 13:45] VITALS: BP 122/77; PULSE 80; RESP 16; O2SAT 98
== END 2024-03-08 14:30 | disposition home or self-care (01) ==
LOC: OR 09:04
PROVIDERS: PCP Family Medicine; Visit Provider Obstetrics & Gynecology
PROC: 0UDB8ZZ Extraction of Endometrium, Via Natural or Artificial Opening Endoscopic (ICD-10-PCS; CPT 58558; principal; 2024-03-08 10:15)
DX: N85.8 Other specified noninflammatory disorders of uterus (principal); N96 Recurrent pregnancy loss
CPT/HCPCS: 58558; 00952; 36415; 81025; 85018; 86850; 86900; 86901; 88300; J1100; J1885; J2250; J2405; J2704; J3010; J7120